=== PATIENT | female | born 1995 | race Two or more races ===

== ENCOUNTER 2025-02-02 05:12 | Emergency (ER) | payer MEDICAID, OTHER ==
[~2025-02-02] VITALS: Ht 160 cm; Wt 71.7 kg
[2025-02-02 05:12] VITALS: TEMP 98.1
--- NOTE | 2025-02-02 06:43 | ED.PDOC ---
GI ASSESSMENT HPI Comments 29 y/o F, with no prior medical history presents to the ED for CC of abdominal pain. 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 Patient relays, to have further associated symptoms of nausea and vomiting. Patient comments, that pain intensifies with inspiration. Patient denies palpitations, numbness or weakness in extremities, dizziness, headache, or diarrhea. No other symptom or modifying factors are present at this time. Chief Complaint: Abdominal Pain Time Seen by MD: 06:15 Reviewed Notes: Nurses Notes, Medications, Allergies Allergies: Coded Allergies: Penicillins (Verified Allergy, Unknown, 02/02/25) Information Source: Patient Mode of Arrival: Ambulatory Timing: Hours Duration: Since onset Prehospital treatment: None Quality: Sharp Vomitus: Watery Stool: Normal Severity: Moderate Recent: None Recent Hx of: None Pain Location: Epigastric Modifying Factors: Nothing Associated sign and symptoms: Nausea, Vomiting, Abdominal Pain Past Medical History PAST MEDICAL HISTORY: Denies Surgical History: Denies all surgeries 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 Family History Family History: Unknown Social History Smoker: Non-Smoker Alcohol: Denies ETOH Use Drugs: Denies Drug Use Lives In: Home Constitutional: denies: chills, diaphoresis, fatigue, fever, malaise, sweats, weakness, others EENTM: denies: blurred vision, double vision, ear bleeding, ear discharge, ear drainage, ear pain, ear ringing, eye pain, eye redness, hearing loss, mouth pain, mouth swelling, nasal discharge, nose bleeding, nose congestion, nose pain, photophobia, tearing, throat pain, throat swelling, voice changes, others Respiratory: denies: cough, hemoptysis, orthopnea, SOB at rest, shortness of breath, SOB with excertion, stridor, wheezing, others Cardiovascular: reports: chest pain; denies: dizzy spells, diaphoresis, Dyspnea on exertion, edema, irregular heart beat, left arm pain, lightheadedness, palpitations, PND, syncope, others Gastrointestinal: reports: abdominal pain, nausea, vomiting; denies: abdomen distended, blood streaked bowels, constipated, diarrhea, dysphagia, difficulty swallowing, hematemesis, melena, poor appetite, poor fluid intake, rectal bleeding, rectal pain, others Genitourinary: denies: abnormal vagina bleeding, burning, dyspareunia, dysuria, flank pain, frequency, hematuria, incontinence, pain, , vagina discharge, urgency, others Neurological: denies: dizziness, fainting, headache, left sided numbness, left sided weakness, numbness, paresthesia, pre-existing deficit, right sided numbness, right sided weakness, seizure, speech problems, tingling, tremors, weakness, others Musculoskeletal: denies: back pain, gout, joint pain, joint swelling, muscle pain, muscle stiffness, neck pain, others Integumetry: denies: bruises, change in color, change in hair/nails, dryness, laceration, lesions, lumps, rash, wounds, others Allergic/Immunocompromised: denies: Difficulty Healing, Frequent Infections, Hives, Itching, others Hematologic/Lymphatic: denies: anemia, blood clots, easy bleeding, easy bruising, swollen glands, others Endocrine: denies: excessive hunger, excessive sweating, excessive thirst, excessive urination, flushing, intolerance to cold, intolerance to heat, unexplained weight gain, unexplained weight loss, others Psychiatric: denies: anxiety, bipolar disorder, depression, hopeless, panic disorder, schizophrenia, sleepless, suicidal, others All Other Systems: Reviewed and Negative Physical Exam General Appearance: Moderate Distress HEENT: Normal ENT Inspection, Pharynx Normal, TMs Normal Neck: Full Range of Motion, Non-Tender, Normal, Normal Inspection Respiratory: Chest Non-Tender, Lungs Clear, No Accessory Muscle Use, No Respiratory Distress, Normal Breath Sounds Cardiovascular: No Edema, No JVD, No Murmur, No Gallop, Normal Peripheral Pulses, Regular Rate/Rhythm Breast Exam: Deferred Gastrointestinal: No Organomegaly, Non Tender, No Pulsatile Mass, Normal Bowel Sounds, Soft Genitalia: Deferred Pelvic: Deferred Rectal: Deferred Extremities: No calf tenderness, Normal capillary refill, Normal inspection, Normal range of motion, Non-tender, No pedal edema Musculoskeletal : Apperance: Normal Neurologic: Alert, 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 Was a procedure done?: No GI differential Dx Differential Diagnosis: Constipation, Diverticular disease, Esophagitis, Gastritis/PUD, Gastroenteritis, Electrolyte Imbalance, Food Poisoning, Bacterial, Viral X-Ray, Labs, Meds, VS Vital Signs Date Time Temp Pulse Resp B/P (MAP) Pulse Ox O2 Delivery O2 Flow Rate FiO2 02/02/25 05:12 98.1 111 18 117/81 97 98.1 Patient alert. Came in because epigastric discomfort. Chest pain shortness a breath. She is anxious. No leg swelling. Saturation pristine on room air. She is comfortable. Heart rate on clinical examination was within normal limits. Possible gastritis. Was given prescription of Protonix. Explained to the patient. Continue monitoring. Time of 1ST Reevaluation: 06:45 Reevaluation 1ST: Improved Patient Education/Counseling: Diagnosis, Treatment Family Education/Counseling: No Family Present SEPSIS Sepsis Screen Date sepsis recognized/suspect: Feb 02, 2025 Time Sepsis recognized/suspect: 511 Recent Procedure: No On Antibiotic Therapy: No Respiratory Rate >20: No Heart Rate >90: Yes Temp<36 C (96.8 F) or >38.3 C: No SBP <90 or MAP <65 mmHG: No New Acute Mental Status Change: No Is the patient on CPAP, BIPAP,: No Physician Orders Complete Blood Count (02/02/25 06:38) Urinalysis (02/02/25 06:38) Basic Metabolic Panel (02/02/25 06:38) Vital Signs Date Time Temp Pulse Resp B/P (MAP) Pulse Ox O2 Delivery O2 Flow Rate FiO2 02/02/25 05:12 98.1 111 18 117/81 97 98.1 Departure 1 Departure Time of Disposition: 07:01 Impression: Primary Impression: Gastritis Qualified Codes: K29.00 - Acute gastritis without bleeding Disposition: 01 HOME / SELF CARE / HOMELESS Condition: Good Discharged With: Self Critical Care Note Critical Care Time?: No Stability Stability form required: No Heart Score Heart Score: Heart Score Response (Comments) Value History N/A 0 EKG N/A 0 Age N/A 0 Risk Factors N/A 0 Troponin N/A 0 Total 0 I personally scribed for JOSE DAVID ANGELA MD ([email or web address]) on 02/02/25 at 06:43. Electronically submitted by Yen Lo [email or web address]). JOSE DAVID ANGELA MD Feb 02, 2025 06:43
[2025-02-02 07:22] LABS: Hematocrit 42.0 % (36.0-46.0); Hemoglobin 14.1 g/dL (12.2-16.2); Mean Corpuscular Hemoglobin 31.6 pg (28.0-32.0); Mean Corpuscular Volume 94.3 fL (80.0-100.0); Nucleated Red Blood Cells % 0.0 %
[2025-02-02 07:34] LABS: Chloride 106 mmol/L (98-107); Sodium 143 mmol/L (136-145)
[2025-02-02 07:35] LABS: Anion Gap 12 (5-15); Calcium 9.1 mg/dL (8.7-10.4); Carbon Dioxide 25 mmol/L (20-31)
[2025-02-02 07:40] LABS: BUN/Creatinine Ratio 13.2 (10.0-20.0); Blood Urea Nitrogen 10 mg/dL (9-23); Glucose 91 mg/dL (74-106); Potassium 3.4 mmol/L (3.5-5.1)
[2025-02-02 07:44] LABS: Urine Protein, UAD Negative (Negative)
[2025-02-02 09:09] VITALS: BP 110/74; PULSE 90; RESP 16; O2SAT 97
== END 2025-02-02 09:14 | disposition home or self-care (01) ==
LOC: ER 05:12
DX: K29.00 Acute gastritis without bleeding (principal); Z88.0 Allergy status to penicillin
CPT/HCPCS: 36415; 80048; 81001; 85025

== ENCOUNTER 2025-03-15 21:28 | Inpatient (IN) | payer MEDICAID ==
[~2025-03-15] VITALS: Ht 160 cm; Wt 70.0 kg
[2025-03-15] MEDS: SODIUM CHLORIDE 0.9% 1,000 ML IV ONE (00:53)
[2025-03-15 22:22] LABS: Hematocrit 42.2 % (36.0-46.0); Hemoglobin 14.2 g/dL (12.2-16.2); Mean Corpuscular Hemoglobin 31.8 pg (28.0-32.0); Mean Corpuscular Volume 94.6 fL (80.0-100.0); Nucleated Red Blood Cells % 0.0 %
[2025-03-15 22:39] LABS: Alanine Aminotransferase 24 U/L (7-40); Alkaline Phosphatase 75 U/L (46-116); Anion Gap 12 (5-15); BUN/Creatinine Ratio 9.7 (10.0-20.0); Calcium 9.7 mg/dL (8.7-10.4); Carbon Dioxide 24 mmol/L (20-31); Chloride 99 mmol/L (98-107); Glucose 105 mg/dL (74-106); Lipase 34 U/L (12-53); Potassium 3.5 mmol/L (3.5-5.1)
[2025-03-15 22:40] LABS: Bilirubin, Total 1.2 mg/dL (0.2-1.0)
--- NOTE | 2025-03-15 22:46 | ED.PDOC ---
History of Present Illness HPI Comments 29 y/o F presents with c/c of lower abdominal pain, with associated nausea and vomiting. Patient endorses on sudden, unprovoked, and atraumatic onset of pain, yesterday. Reports on RLQ being more painful of her two sides. Pain worse with movement. Denial of any bloody or bilious vomitus, diarrhea, constipation, or further associated symptoms. 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 Family History Family History: Unknown Social History Smoker: Non-Smoker Alcohol: Denies ETOH Use Drugs: Denies Drug Use Lives In: Home All Other Systems: Reviewed and Negative (Comprehensive review of systems are negative unless stated in HPI) Physical Exam General Appearance: Moderate Distress, Normal HEENT: Normal ENT Inspection, Pharynx Normal, TMs Normal Neck: Full Range of Motion, Non-Tender, Normal, Normal Inspection Respiratory: Chest Non-Tender, Lungs Clear, No Accessory Muscle Use, No Respiratory Distress, Normal Breath Sounds Cardiovascular: No Edema, No JVD, No Murmur, No Gallop, Normal Peripheral Pulses, Regular Rate/Rhythm Breast Exam: Deferred Gastrointestinal: No Organomegaly, No Pulsatile Mass, Normal Bowel Sounds, RLQ (tenderness ), Soft, Tenderness (RLQ) Genitalia: Deferred Pelvic: Deferred Rectal: Deferred Extremities: No calf tenderness, Normal capillary refill, Normal inspection, Normal range of motion, Non-tender, No pedal edema Musculoskeletal : Apperance: Normal Neurologic: 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 Was a procedure done?: No Differential Dx Considerations may include: appendicitis, nephrolithiasis, UTI, viral syndrome, ovarian cysts/torsion, among others X-Ray, Labs, Meds, VS Vital Signs Date Time Temp Pulse Resp B/P (MAP) Pulse Ox O2 Delivery O2 Flow Rate FiO2 9/28/25 22:47 98.9 149 18 124/80 (95) 97 98.9 03/15/25 21:29 97.6 136 20 143/92 98 97.6 Lab Test 03/15/25 22:15 Range/Units White Blood Count 14.2 H 4.4-10.8 10^3/uL Red Blood Count 4.47 4.0-5.20 10^6/uL Hemoglobin 14.2 12.2-16.2 g/dL Hematocrit 42.2 36.0-46.0 % Mean Corpuscular Volume 94.6 80.0-100.0 fL Mean Corpuscular Hemoglobin 31.8 28.0-32.0 pg Mean Corpuscular Hemoglobin Concent 33.6 32.0-36.0 g/dL Red Cell Distribution Width 16.0 H 11.8-14.3 % Platelet Count 274 140-450 10^3/uL Mean Platelet Volume 7.0 6.9-10.8 fL Neutrophils (%) (Auto) 79.7 37.0-80.0 % Lymphocytes (%) (Auto) 8.5 L 10.0-50.0 % Monocytes (%) (Auto) 11.4 0.0-12.0 % Eosinophils (%) (Auto) 0.0 0.0-7.0 % Basophils (%) (Auto) 0.4 0.0-2.0 % Neutrophils # (Auto) 11.3 H 1.6-8.6 10 ^3/uL Lymphocytes # (Auto) 1.2 0.4-5.4 10 ^3/uL Monocytes # (Auto) 1.6 H 0-1.3 10 ^3/uL Eosinophils # (Auto) 0 0-0.8 10 ^3/uL Basophils # (Auto) 0.1 0-0.2 10 ^3/uL Nucleated Red Blood Cells 0.0 % Sodium Level 135 L 136-145 mmol/L Potassium Level 3.5 3.5-5.1 mmol/L Chloride Level 99 98-107 mmol/L Carbon Dioxide Level 24 20-31 mmol/L Anion Gap 12 5-15 Blood Urea Nitrogen 7 L 9-23 mg/dL Creatinine 0.72 0.550-1.02 mg/dL Glomerular Filtration Rate Calc 115 >90 mL/min BUN/Creatinine Ratio 9.7 L 10.0-20.0 Serum Glucose 105 74-106 mg/dL Calcium Level 9.7 8.7-10.4 mg/dL Total Bilirubin 1.2 H 0.2-1.0 mg/dL Aspartate Amino Transferase (AST) 20 13-40 U/L Alanine Aminotransferase (ALT) 24 7-40 U/L Alkaline Phosphatase 75 46-116 U/L Total Protein 8.5 H 5.7-8.2 g/dL Albumin 5.0 H 3.2-4.8 g/dL Lipase 34 12-53 U/L Time of 1ST Reevaluation: 21:15 Reevaluation 1ST: Unchanged Patient Education/Counseling: Diagnosis, Treatment Family Education/Counseling: No Family Present SEPSIS Sepsis Screen Date sepsis recognized/suspect: Mar 15, 2025 Time Sepsis recognized/suspect: 2128 Recent Procedure: No On Antibiotic Therapy: No Respiratory Rate >20: No Heart Rate >90: Yes Temp<36 C (96.8 F) or >38.3 C: No SBP <90 or MAP <65 mmHG: No New Acute Mental Status Change: No Is the patient on CPAP, BIPAP,: No Physician Orders Urinalysis (03/15/25 21:57) Test, Urine (03/15/25 21:57) Ct Ab Pel With Iv Con Only (03/15/25 22:58) Vital Signs Date Time Temp Pulse Resp B/P (MAP) Pulse Ox O2 Delivery O2 Flow Rate FiO2 03/15/25 22:47 98.9 149 18 124/80 (95) 97 98.9 03/15/25 21:29 97.6 136 20 143/92 98 97.6 Laboratory Tests Test 03/15/25 22:15 White Blood Count 14.2 10^3/uL (4.4-10.8) H Departure 1 Departure Time of Disposition: 00:02 Impression: Primary Impression: Acute appendicitis Disposition: ADMITTED INPATIENT Admit to: Med Surg Condition: Guarded Discharged With: Self Comments 29-year-old female with severe right lower quadrant pain. White count is elevated 14.2. CT of the abdomen and pelvis shows acute appendicitis. Patient was given IV fluids and pain medicine and IV Zosyn antibiotics. Patient will need to be admitted for supportive care and surgical consultation and possible appendectomy. Critical Care Note Critical Care Time?: Yes (35 min-critical care time only) Critical care comment: Total critical care time: Approximately 36 minutes Due to a high probability of clinically significant, life threatening deterioration, the patient required my highest level of preparedness to intervene emergently and I personally spent this critical care time directly and personally managing the patient. This critical care time included obtaining a history; examining the patient; pulse oximetry; ordering and review of studies; arranging urgent treatment with development of a management plan; evaluation of patient's response to treatment; frequent reassessment; and, discussions with other providers. This critical care time was performed to assess and manage the high probability of imminent, life-threatening deterioration that could result in multi-organ failure. It was exclusive of separately billable procedures and treating other patients. Stability Stability form required: No Heart Score Heart Score: Heart Score Response (Comments) Value History N/A 0 EKG N/A 0 Age N/A 0 Risk Factors N/A 0 Troponin N/A 0 Total 0 I personally scribed for SILVA FISHER MD ([email or web address]) on 03/15/25 at 22:46. Electronically submitted by Jassi Kennedy ([email or web address]). SILVA FISHER MD Mar 15, 2025 22:46
[2025-03-15 22:58] LABS: Albumin 5.0 g/dL (3.2-4.8); Blood Urea Nitrogen 7 mg/dL (9-23); Sodium 135 mmol/L (136-145); Total Protein 8.5 g/dL (5.7-8.2)
[2025-03-15] MEDS: IOHEXOL 300 MG/ML 100ML BOTTLE IJ ONE (23:09)
--- NOTE | 2025-03-15 23:49 | DVH ---
CLINICAL HISTORY: RLQ pain TECHNIQUE: CT of the abdomen and pelvis was performed with intravenous contrast. This exam was perfor med according to our departmental dose optimization program. Up-to-date CT equipment and radiation do se reduction techniques are utilized as appropriate. 16.68 CTDIVol: 16.68+ 0.14 mGy DLP: 785.17 mGy-cm WID: COMPARISON: None FINDINGS: Lower Thorax: Calcified granuloma in the left lower lobe. Lung bases otherwise clear. Normal-sized h eart. Liver and Biliary system: Unremarkable. Spleen: Unremarkable. Adrenal Glands and Kidneys: Normal adrenal glands. There is a cyst in the lower pole left kidney. The re is no hydronephrosis or nephrolithiasis. Pancreas and Retroperitoneum: Unremarkable. Aorta and Major Vessels: Aortoiliac vessels are patent and normal caliber Bowel, Mesentery and Peritoneal space: Normal caliber small and large bowel. There is mild ascites. There is a dilated and elongated appendix with periappendiceal soft tissue stranding. Scattered fluid -filled small bowel loops. There is no free intraperitoneal air or loculated fluid collection. Pelvis: Small cyst or prominent follicle in the left ovary. The uterus and ovaries are otherwise unr emarkable. Urinary bladder is mildly distended. There is no pelvic lymphadenopathy. Abdominal wall and Osseous Structures: No destructive osseous lesion. IMPRESSION: 1. Acute appendicitis. No free air or abscess.
[2025-03-16] VITALS (7 sets, daily range): BP systolic 102–115; BP diastolic 72–80; PULSE 71–89; RESP 12–18; TEMP 98.2–98.5; O2SAT 96–100
[2025-03-16] MEDS ORDERED: SODIUM CHLORIDE 0.9% 1,000 ML IV SCH (00:15)
--- NOTE | 2025-03-16 00:19 | DVHHPRES ---
History of Present Illness Resident Creating Document: JUNE ALVAREZ History of Present Illness Alex Frye is a 29year old female patient who presents to the ED with chief complaint of constant pressure-like abdominal pain which 1st started and umbilical area and then radiated towards right lower quadrant, pain started on Sunday on 03/14/2025 at noon with intensity 10/10, associated with nausea, vomiting with food containing than yellowish and clear emesis and constipation. Pain did not improve with Pepto-Bismol and was partially relieved by heating pads. Patient was not able to since onset of symptoms, prompting her visit today. Denies fever, chills, sick contact, recent travel and other associated symptom. 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 Surgical history: Ectopic surgery, left foot surgery Family history: Grandmother has heart disease Social history: Lives in [place] with roommates (next of kin is mother). Occasionally smokes (less than five pack-year history of smoking). Occasional cocaine abuse. Ethanol abuse (drinks two pt of hodan in three beers a day) last alcoholic beverage was on Sunday03/10/2025 Allergies: Penicillin Home medication: Albuterol Patient seen and examined at bedside. Currently presents abdominal pain, intens ity is now 6/10, improved after IV fluids and IV antibiotics. Completed abdomen and pelvis CT in ER which showed appendicitis, suggested admission to continued evaluation and consulted surgery. Past Medical History Per HPI Past Surgical History Per HPI Family History Per HPI Past Social History Per HPI Review of Systems Review of Systems Per HPI Allergies: Coded Allergies: Penicillins (Verified Allergy, Unknown, 02/02/25) Medications Current Medications Medications Dose Ordered Sig/Pelon Route Start Time Stop Time Status Last Admin Dose Admin Ondansetron HCl 4 mg Q4HP PRN IV 03/16/25 00:15 UNV Morphine Sulfate 2 mg Q4HPRN PRN IV 03/16/25 00:15 UNV Enoxaparin Sodium 40 mg DAILY SC 03/16/25 10:00 UNV Sodium Chloride 1,000 ml @ 60 mls/hr [id number] IV 03/16/25 00:15 UNV Exam Vital Signs Vital Signs Date Time Temp Pulse Resp B/P (MAP) Pulse Ox O2 Delivery O2 Flow Rate FiO2 03/15/25 22:47 98.9 149 18 124/80 (95) 97 98.9 Exam Patient lying in bed, in no acute distress General: Lucid, afebrile, mucosae are moist Cardiovascular: Normal S1 and S2. No murmurs, gallops or rubs Respiratory: Normal ventilation mechanics. Clear lung sounds on auscultation Abdomen: Soft, right upper and lower quadrant tenderness on superficial palpation, positive McBurney and Reena sign, rest of abdomen nontender, no organomegaly, normal bowel sounds MSK/skin: Mobilizes 4 limbs. Skin is dry and warm Neurological: Oriented in 3 spheres. No motor no sensitive deficits. Pupils are isocoric and reactive Labs/Xrays Labs Test 03/15/25 22:15 Range/Units White Blood Count 14.2 H 4.4-10.8 10^3/uL Red Blood Count 4.47 4.0-5.20 10^6/uL Hemoglobin 14.2 12.2-16.2 g/dL Hematocrit 42.2 36.0-46.0 % Mean Corpuscular Volume 94.6 80.0-100.0 fL Mean Corpuscular Hemoglobin 31.8 28.0-32.0 pg Mean Corpuscular Hemoglobin Concent 33.6 32.0-36.0 g/dL Red Cell Distribution Width 16.0 H 11.8-14.3 % Platelet Count 274 140-450 10^3/uL Mean Platelet Volume 7.0 6.9-10.8 fL Neutrophils (%) (Auto) 79.7 37.0-80.0 % Lymphocytes (%) (Auto) 8.5 L 10.0-50.0 % Monocytes (%) (Auto) 11.4 0.0-12.0 % Eosinophils (%) (Auto) 0.0 0.0-7.0 % Basophils (%) (Auto) 0.4 0.0-2.0 % Neutrophils # (Auto) 11.3 H 1.6-8.6 10 ^3/uL Lymphocytes # (Auto) 1.2 0.4-5.4 10 ^3/uL Monocytes # (Auto) 1.6 H 0-1.3 10 ^3/uL Eosinophils # (Auto) 0 0-0.8 10 ^3/uL Basophils # (Auto) 0.1 0-0.2 10 ^3/uL Nucleated Red Blood Cells 0.0 % Sodium Level 135 L 136-145 mmol/L Potassium Level 3.5 3.5-5.1 mmol/L Chloride Level 99 98-107 mmol/L Carbon Dioxide Level 24 20-31 mmol/L Anion Gap 12 5-15 Blood Urea Nitrogen 7 L 9-23 mg/dL Creatinine 0.72 0.550-1.02 mg/dL Glomerular Filtration Rate Calc 115 >90 mL/min BUN/Creatinine Ratio 9.7 L 10.0-20.0 Serum Glucose 105 74-106 mg/dL Calcium Level 9.7 8.7-10.4 mg/dL Total Bilirubin 1.2 H 0.2-1.0 mg/dL Aspartate Amino Transferase (AST) 20 13-40 U/L Alanine Aminotransferase (ALT) 24 7-40 U/L Alkaline Phosphatase 75 46-116 U/L Total Protein 8.5 H 5.7-8.2 g/dL Albumin 5.0 H 3.2-4.8 g/dL Lipase 34 12-53 U/L SEPSIS Sepsis Screen Date sepsis recognized/suspect: Mar 15, 2025 Time Sepsis recognized/suspect: 2128 Recent Procedure: No On Antibiotic Therapy: No Respiratory Rate >20: No Heart Rate >90: Yes Temp<36 C (96.8 F) or >38.3 C: No SBP <90 or MAP <65 mmHG: No New Acute Mental Status Change: No Is the patient on CPAP, BIPAP,: No Physician Orders Urinalysis (03/15/25 21:57) Test, Urine (03/15/25 21:57) Ct Ab Pel With Iv Con Only (03/15/25 22:58) Piperacillin-Tazob 3.375gm (Zosyn 3.375g (03/16/25 00:15) * Surgical Consult (03/16/25 ) Code Status (03/16/25 00:12) Ondansetron Hcl (Zofran) (03/16/25 00:15) Npo (Nothing By Mouth) Diet (03/16/25 Breakfast) Morphine Sulfate Injection (03/16/25 00:15) Enoxaparin Sodium (Lovenox) (03/16/25 10:00) Sodium Chloride 0.9% (03/16/25 00:15) Sodium Chloride 0.9% (03/16/25 00:15) Vitamin D, 25-Hydroxy (03/16/25 00:16) Urinalysis (03/16/25 00:16) Vitamin B12 (03/16/25 00:16) Thyroid Stimulating Hormone (03/16/25 00:16) Phosphorus (03/16/25 00:16) PTPTT (03/16/25 00:16) Magnesium (03/16/25 00:16) Lipid Panel (03/16/25 00:16) Lactic Acid W/ Reflex Order (03/16/25 00:16) Hemoglobin A1c (03/16/25 00:16) Drug Screen (03/16/25 00:16) Beta Hcg, Quantitative (03/16/25 00:16) Vital Signs Date Time Temp Pulse Resp B/P (MAP) Pulse Ox O2 Delivery O2 Flow Rate FiO2 03/15/25 22:47 98.9 149 18 124/80 (95) 97 98.9 03/15/25 21:29 97.6 136 20 143/92 98 97.6 Laboratory Tests Test 03/15/25 22:15 White Blood Count 14.2 10^3/uL (4.4-10.8) H Assessment/Plan Assessment/Plan Sepsis secondary to appendicitis Acute appendicitis Completed abdomen and pelvis CT which showed acute appendicitis. Currently under empiric IV antibiotic (Zosyn) Indicate bowel rest (NPO) On IV fluids Consulted educational technology specialist Ethanol abuse Hyperbilirubinemia Polysubstance abuse (ethanol, cocaine, tobacco) Patient drinks a proximally two pt of hodan and three beers a day, her last alcoholic beverage was on 03/10/2025. Ativan p.r.n. for withdrawal syndrome (CIWA score 0) Counseled patient for over 16 minutes on cessation Hypophosphatemia Replenish Multiple ectopic pregnancies and abortions Ordered STI panel Asthma, no exacerbation Albuterol p.r.n. Goals of care discussed with patient for over18 minutes: Full code status Discussed plan with Dr. Soler, patient and nurses: [facility], currently on NPO, IV antibiotics, IV fluids. Ordered surgical evaluation. Plan discussed with: Patient, Other (Nurses) My Orders Orders - JUNE ALVAREZ Procedure Category Date Status Time * Surgical Consult CONS 03/16/25 Transmitted Code Status CODE 03/16/25 Transmitted 00:12 Ondansetron Hcl PHA 03/16/25 Logged (Zofran) 00:15 Npo (Nothing By DIET 03/16/25 Transmitted Mouth) Diet Breakfast Morphine Sulfate PHA 03/16/25 Logged Injection 00:15 Enoxaparin Sodium PHA 03/16/25 Logged (Lovenox) 10:00 Sodium Chloride 0.9% PHA 03/16/25 Logged 00:15 Sodium Chloride 0.9% PHA 03/16/25 Logged 00:15 Vitamin D, 25-Hydroxy LAB 03/16/25 Verified 00:16 Urinalysis LAB 03/16/25 Verified 00:16 Vitamin B12 LAB 03/16/25 Verified 00:16 Thyroid Stimulating LAB 03/16/25 Verified Hormone 00:16 Phosphorus LAB 03/16/25 Verified 00:16 PTPTT LAB 03/16/25 Verified 00:16 Magnesium LAB 03/16/25 Verified 00:16 Lipid Panel LAB 03/16/25 Verified 00:16 Lactic Acid W/ Reflex LAB 03/16/25 Verified Order 00:16 Hemoglobin A1c LAB 03/16/25 Verified 00:16 Drug Screen LAB 03/16/25 Verified 00:16 Beta Hcg, Quantitative LAB 03/16/25 Verified 00:16 Date of Service: Mar 16, 2025 Billing Provider: KRISTEL BRYANT MD Common Visit Codes: 93790-EIHUATK INP/OBS CARE (HIGH) Secondary Visit Codes: 62710-[id number] CARE PLAN 30 MINUTES JUNE ALVAREZ RESIDENT Mar 16, 2025 00:19
[2025-03-16 00:51] LABS: INR 1.07 (0.9-1.15); Partial Thromboplastin Time 29.0 SEC (24.5-34.5); Prothrombin Time 11.3 sec (9.3-11.8)
[2025-03-16] MEDS: ONDANSETRON HCL 4 MG/2 ML VIAL IV ONE (00:54)
[2025-03-16] MEDS: MORPHINE SULFATE 4 MG/ML SYR/VIAL IV ONE (00:55)
[2025-03-16 01:44] LABS: Triglycerides 63.0 mg/dL (< 150)
[2025-03-16 01:45] LABS: Magnesium 1.7 mg/dL (1.6-2.6)
[2025-03-16 01:46] LABS: Cholesterol 136.0 mg/dL (< 200)
[2025-03-16 01:48] LABS: HDL Cholesterol 73.0 mg/dL (40-59)
[2025-03-16 02:10] LABS: Urine Protein, UAD TRACE (Negative)
[2025-03-16] MEDS: SODIUM CHLORIDE 0.9% 1,000 ML IV ONE (02:10)
[2025-03-16 02:23] LABS: Amphetamine Screen, Urine Neg (NEGATIVE); Barbiturate Scree,Urine Neg (NEGATIVE); Benzodiazephine Screen, Urine Neg (NEGATIVE); Cannabinoid Screen, Urine Neg (NEGATIVE); Cocaine Screen, Urine Neg (NEGATIVE); Opiate Scree,Urine Neg (NEGATIVE); Phencyclidine Screen, Urine Neg (NEGATIVE)
[2025-03-16] MEDS ORDERED: LORazepam 2MG/ML-1ML VIAL IV PRN (03:15)
[2025-03-16 04:45] LABS: Hematocrit 38.3 % (36.0-46.0); Hemoglobin 12.9 g/dL (12.2-16.2); Mean Corpuscular Hemoglobin 32.1 pg (28.0-32.0); Mean Corpuscular Volume 95.2 fL (80.0-100.0); Nucleated Red Blood Cells % 0.0 %
[2025-03-16 04:55] LABS: Alanine Aminotransferase 18 U/L (7-40); Albumin 4.5 g/dL (3.2-4.8); Alkaline Phosphatase 68 U/L (46-116); Anion Gap 10 (5-15); Bilirubin, Total 1.1 mg/dL (0.2-1.0); Carbon Dioxide 24 mmol/L (20-31); Chloride 101 mmol/L (98-107); Glucose 88 mg/dL (74-106); Total Protein 7.7 g/dL (5.7-8.2)
[2025-03-16 04:56] LABS: BUN/Creatinine Ratio 7.7 (10.0-20.0); Blood Urea Nitrogen < 5 mg/dL (9-23); Calcium 8.3 mg/dL (8.7-10.4); Potassium 3.3 mmol/L (3.5-5.1); Sodium 135 mmol/L (136-145)
[2025-03-16] MEDS: PANTOPRAZOLE 40 MG/10 ML VIAL INJ IV ONE (04:56)
[2025-03-16] MEDS: MORPHINE SULFATE INJ 2 MG/ml SYRG IV PRN (04:57)
[2025-03-16] MEDS: ONDANSETRON HCL 4 MG/2 ML VIAL IV PRN (04:58)
[2025-03-16] MEDS: MORPHINE SULFATE 4 MG/ML SYR/VIAL ONE (04:58)
[2025-03-16] MEDS: PIPERACILLIN-TAZOB 3.375GM 100 ML IV ONE ×2 (09:32→12:34)
[2025-03-16] MEDS ORDERED: MORPHINE SULFATE 4 MG/ML SYR/VIAL IV PRN (10:15)
[2025-03-16] MEDS: KETOROLAC TROMETH 30 MG/ML 1ML VIAL IV ONE (10:15)
[2025-03-16] MEDS ORDERED: METOCLOPRAMIDE HCL 5MG/ml INJ 2ml VIAL IV PRN (10:15)
[2025-03-16] MEDS ORDERED: HYDROmorphone HCL 2 MG/ML VL/or syr IV PRN (10:15)
[2025-03-16] MEDS ORDERED: ONDANSETRON HCL 4 MG/2 ML VIAL ONE (10:21)
[2025-03-16] MEDS ORDERED: ROCURONIUM 10MG/ML 10ML VIAL IV ONE (10:21)
[2025-03-16] MEDS ORDERED: LIDOCAINE HCL 2% TOP JELLY 5ML TOP ONE (10:21)
[2025-03-16] MEDS ORDERED: NEOSTIGMINE 1 MG/ML INJ (10mg/10ML VIAL) ONE (10:21)
[2025-03-16] MEDS ORDERED: LIDOCAINE 1% INJ PF 5ML AMP ONE (10:21)
[2025-03-16] MEDS ORDERED: MIDAZOLAM HCL 2MG/2ML 2ml VIAL (1mg/ml) ONE (10:21)
[2025-03-16] MEDS ORDERED: KETAMINE 50mg/ML 10ml Vial 10 ML ONE (10:21)
[2025-03-16] MEDS ORDERED: GLYCOPYRROLATE 0.2 MG/ML 1ML VIAL ONE (10:21)
[2025-03-16] MEDS ORDERED: HYDROmorphone HCL 2 MG/ML VL/or syr ONE (10:21)
[2025-03-16] MEDS ORDERED: SODIUM CHLORIDE LOCK 10 ML ONE (10:21)
[2025-03-16] MEDS ORDERED: fentaNYL CITRATE 100 MCG/2 ML VL ONE (10:21)
[2025-03-16] MEDS ORDERED: PROPOFOL 10 MG/ML 20 ML IV ONE (10:21)
--- NOTE | 2025-03-16 10:22 | DVHINCON2 ---
Date of service: Mar 16, 2025 History of Present Illness 29-year-old female with a history of alcohol abuse complaining of one day history of periumbilical and right lower quadrant abdominal pain last night. Past Medical History Asthma Past Surgical History Two laparoscopic surgeries for ectopic . Left ankle surgery. Family History Noncontributory Social History Drinks every day. Denies tobacco or IV drug use Allergies: Coded Allergies: NO KNOWN ALLERGIES (Unverified , 03/16/25) Home Meds No Active Prescriptions or Reported Meds Current Medications Current Medications Medications (Trade) Dose Ordered Sig/Pelon Route PRN Reason Start Time Stop Time Status Last Admin Ondansetron HCl (Zofran) 4 mg Q4HP PRN IV NAUSEA / VOMITING 03/16/25 00:15 03/16/25 04:58 Morphine Sulfate 2 mg Q4HPRN PRN IV SEVERE PAIN (7-10 PAIN SCALE) 03/16/25 00:15 03/16/25 04:57 Enoxaparin Sodium (Lovenox) 40 mg DAILY SC 03/16/25 10:00 Sodium Chloride 1,000 ml @ 60 mls/hr [id number] IV 03/16/25 00:15 Piperacillin Sod/ Tazobactam Sod 100 ml @ 25 mls/hr Q8HR IV 03/16/25 14:00 Pantoprazole Sodium (Protonix) 40 mg DAILY IV 03/16/25 10:00 Lorazepam (Ativan Inj) 0.5 mg Q6HP PRN IV ANXIETY 03/16/25 03:15 Metoclopramide HCl (Reglan Injection) 10 mg ONCE PRN IV NAUSEA / VOMITING 03/16/25 10:15 03/16/25 10:16 UNV Hydromorphone HCl (Dilaudid Injection) 0.5 mg Q10M PRN IV SEVERE PAIN (7-10 PAIN SCALE) 03/16/25 10:15 03/16/25 10:56 UNV Morphine Sulfate 2 mg Q4H PRN IV BREAKTHRU PAIN SCALE 7-10 03/16/25 10:15 03/16/25 14:16 UNV Hydromorphone HCl (Dilaudid Injection) 0.25 mg Q10M PRN IV MODERATE PAIN (4-6 PAIN SCALE) 03/16/25 10:15 03/16/25 10:46 UNV Morphine Sulfate 1 mg Q30M PRN IV SEVERE PAIN (7-10 PAIN SCALE) 03/16/25 10:15 03/16/25 12:16 UNV Vital Signs Vital Signs Date Time Temp Pulse Resp B/P (MAP) Pulse Ox O2 Delivery O2 Flow Rate FiO2 03/16/25 07:39 98.5 89 16 115/80 (92) 98 98.5 03/16/25 01:22 Room Air* 0 21 Physical Exam GEN: Age-appropriate female in no acute distress. Alert. HEENT: Normocephalic atraumatic. Moist mucous membranes. Anicteric sclerae. CV: RRR Respiratory: CTAB ABD: Diffuse tenderness to palpation especially in the right lower quadrant with localized guarding. CT of the abdomen and pelvis: Acute appendicitis Labs/Diagnostic Data Labs Test 03/16/25 04:17 03/16/25 01:50 03/16/25 00:31 03/15/25 22:15 Range/Units White Blood Count 9.8 # 4.4-10.8 10^3/uL Red Blood Count 4.03 4.0-5.20 10^6/uL Hemoglobin 12.9 12.2-16.2 g/dL Hematocrit 38.3 36.0-46.0 % Mean Corpuscular Volume 95.2 80.0-100.0 fL Mean Corpuscular Hemoglobin 32.1 H 28.0-32.0 pg Mean Corpuscular Hemoglobin Concent 33.7 32.0-36.0 g/dL Red Cell Distribution Width 16.0 H 11.8-14.3 % Platelet Count 229 140-450 10^3/uL Mean Platelet Volume 7.5 6.9-10.8 fL Neutrophils (%) (Auto) 71.3 37.0-80.0 % Lymphocytes (%) (Auto) 18.7 10.0-50.0 % Monocytes (%) (Auto) 9.8 0.0-12.0 % Eosinophils (%) (Auto) 0.1 0.0-7.0 % Basophils (%) (Auto) 0.1 0.0-2.0 % Neutrophils # (Auto) 7.0 1.6-8.6 10 ^3/uL Lymphocytes # (Auto) 1.8 0.4-5.4 10 ^3/uL Monocytes # (Auto) 1.0 0-1.3 10 ^3/uL Eosinophils # (Auto) 0 0-0.8 10 ^3/uL Basophils # (Auto) 0 0-0.2 10 ^3/uL Nucleated Red Blood Cells 0.0 % Sodium Level 135 L 136-145 mmol/L Potassium Level 3.3 L 3.5-5.1 mmol/L Chloride Level 101 98-107 mmol/L Carbon Dioxide Level 24 20-31 mmol/L Anion Gap 10 5-15 Blood Urea Nitrogen < 5 L 9-23 mg/dL Creatinine 0.65 0.550-1.02 mg/dL Glomerular Filtration Rate Calc 121 >90 mL/min BUN/Creatinine Ratio 7.7 L 10.0-20.0 Serum Glucose 88 74-106 mg/dL Calcium Level 8.3 L 8.7-10.4 mg/dL Total Bilirubin 1.1 H 0.2-1.0 mg/dL Aspartate Amino Transferase (AST) 15 13-40 U/L Alanine Aminotransferase (ALT) 18 7-40 U/L Alkaline Phosphatase 68 46-116 U/L Total Protein 7.7 5.7-8.2 g/dL Albumin 4.5 3.2-4.8 g/dL Plasma/Serum Blood Alcohol < 3.0 <10 mg/dL Treponema pallidum Antibody Non-reactive Negative HIV (1&2) Antibody Negative Negative Urine Color Light-yellow Yellow Urine Clarity Clear Clear Urine pH 7.0 5.0-9.0 Urine Specific [place] > 1.050 H 1.001-1.035 Urine Protein Trace H Negative Urine Ketones 1+ H Negative Urine Blood Negative Negative /uL Urine Nitrite Negative Negative Urine Bilirubin Negative Negative Urine Urobilinogen Normal Negative mg/dL Urine Leukocyte Esterase Negative Negative /uL Urine RBC None seen 0 - 4 /hpf Urine Microscopic WBC 1 0-5 /HPF Urine Squamous Epithelial Cells Few <5 /hpf Urine Bacteria None seen None Seen /hpf Urine Glucose Normal Normal mg/dL Urine Test Negative Negative Urine Opiates Screen Neg NEGATIVE Urine Fentanyl Screen Neg NEGATIVE Urine Barbiturates Screen Neg NEGATIVE Urine Phencyclidine Screen Neg NEGATIVE Urine Amphetamines Screen Neg NEGATIVE Urine Benzodiazepines Screen Neg NEGATIVE Urine Cocaine Screen Neg NEGATIVE Urine Cannabinoids Screen Neg NEGATIVE Lactic Acid Level 1.1 0.4-2.0 mmol/L Phosphorus Level 2.3 L 2.4-5.1 mg/dL Magnesium Level 1.7 1.6-2.6 mg/dL Triglycerides Level 63 < 150 mg/dL Cholesterol Level 136 < 200 mg/dL LDL Cholesterol 52 < 100 mg/dL HDL Cholesterol 73 H 40-59 mg/dL Prothrombin Time 11.3 9.3-11.8 sec Prothrombin Time INR 1.07 0.9-1.15 Activated Partial Thromboplast Time 29.0 24.5-34.5 SEC Hemoglobin A1c 4.9 <5.7 % A1C Lipase 34 12-53 U/L Vitamin D 25-Hydroxy 9.6 L 30.0-100 ng/mL Thyroid Stimulating Hormone (TSH) 1.19 0.55-4.78 uIU/mL Beta HCG, Quantitative 0.2 L 1.5-4.2 mIU/mL Assessment 1. Acute appendicitis Plan/Recommendation 1. Laparoscopic appendectomy possible open surgery Informed consent: The surgery and its risks including but not limited to infection, bleeding requiring possible blood transfusion with the risk of hepatitis or HIV infection, possible open surgery, possibility that the ab dominal pain is caused by different intra-abdominal pathology other than acute appendicitis in which case we will proceed with the appendectomy if it is safe to do so and then treat the problem according to intraoperative findings were explained to the patient. All questions were answered to her satisfaction. She expressed verbal understanding and wished to proceed with the surgery. Plan discussed with: Patient MARIA LUISA MONTESINOS MD Mar 16, 2025 10:22
[2025-03-16 10:28] LABS: Hepatitis B Surface Antigen Negative (Negative); Hepatitis C Antibody Negative (Negative)
[2025-03-16] MEDS: ENOXAPARIN SOD 40 MG/0.4 ML SYRINGE SC SCH (10:55)
[2025-03-16] MEDS: POTASSIUM CHLORIDE 40 MEQ, LIDOCAINE 1% (LOCAL ANESTH.) 4 ML in SODIUM CHL 0.9% 250 ML IV ONE (10:56)
[2025-03-16] MEDS: PANTOPRAZOLE 40 MG/10 ML VIAL INJ IV SCH (10:56)
[2025-03-16] MEDS ORDERED: MORPHINE SULFATE INJ 2 MG/ml SYRG IV PRN (11:30)
[2025-03-16] MEDS ORDERED: SUGAMMADEX 200mg/2ml Vial (100MG/ML) IV ONE (11:44)
--- NOTE | 2025-03-16 11:50 | DVHOP2 ---
Operative Report - 2 Report Details Date: 03/16/25 Preop Diagnosis: 1. Acute appendicitis Postop Diagnosis: 1. Same Surgeon: Filipe Montesinos MD Imaging Manager: None Anesthesiologist: Dr. Corral Anesthesia: General, Local Consent: The surgery and its risks including but not limited to infection, bleeding requiring possible blood transfusion with the risk of hepatitis or HIV infection, possible open surgery, possibility that the abdominal pain is caused by different intra-abdominal pathology other than acute appendicitis in which case we will proceed with the appendectomy if it is safe to do so and then treat the problem according to intraoperative findings were explained to the patient. All questions were answered to her satisfaction. She expressed verbal understanding and wished to proceed with the surgery. Complications: None Estimated Blood Loss: 20 mL Fluids: 600 mL Name of Procedure Performed Laparoscopic appendectomy Procedure Details Procedure Details: After induction of general anesthesia, Frost catheter was placed by the OR nursing staff and her abdomen was then prepped and draped in standard surgical fashion. A small infraumbilical incision was made and this incision was taken through the abdominal wall down to the fascia. There was appeared to be a small umbilical hernia with small amount of incarcerated fatty tissue which was amputated at the level of the fascial defect. The fascial defect was then lengthened big enough to fit a Matilde trocar. Interrupted 0 Vicryl sutures were placed through the fascial incision and using an open technique, Matilde trocar was introduced and secured using the Vicryl sutures. Abdomen was then insufflated to 15 mmHg and camera was inserted. Visual examination of the intestine under the fascial incision appeared normal without injury. Under direct visualization, a 5 mm bladeless trocar was placed in the left lower quadrant and a 2nd 5 mm bladeless trocar was placed in the suprapubic region both under direct visualization. Examination of the right lower quadrant revealed inflamed and dilated appendix without perforation. Mesoappendix was then divided up to the base of the appendix using an endovascular stapler. Base of the appendix was then stapled and divided using a regular endo stapler. The appendix was then removed from the abdominal cavity using an endo pouch bag and sent off the surgical field. Abdomen was then re-insufflated. The staple line was visualized and appeared intact without bleeding or leaks. There was cloudy fluid down in the pelvis which was aspirated away and the pelvic area was then well irrigated until fluid was clear. Trocars were then removed under direct visualization as the abdomen was deflated. Additional interrupted 0 Vicryl sutures were placed through the infraumbilical fascial incision and the sutures were tied down closing off the infraumbilical fascia. Surgical sites were irrigated injected with 20 mL of 0.25% Marcaine with epinephrine. Skin incisions were closed using minor. Surgical sites were cleaned and dried and dressings were applied. Sponge, needle, instrument count at the end of the case were reported to be correct by the nursing staff. The patient tolerated procedure well and was awake, extubated and at the time of dictation she is being transferred back to recovery in stable condition. Specimen: Appendix Condition Stable Disposition Still a Patient FILIPE MONTESINOS MD Mar 16, 2025 11:50
[2025-03-16] MEDS: HYDROmorphone HCL 2 MG/ML VL/or syr IV PRN (12:14)
--- NOTE | 2025-03-16 12:29 | DVHPNRES ---
Progress Note Date Seen: Mar 16, 2025 Resident Creating Document: VINOD SINGER RESIDENT Medical Necessity Reason Pt with a Central, PICC or Fol: No Subjective Review of Systems Alex Frye is a 29year old female patient who presents to the ED with chief complaint of constant pressure-like abdominal pain which 1st started and umbilical area and then radiated towards right lower quadrant, pain started on Sunday on 03/14/2025 at noon with intensity 10/10, associated with nausea, vomiting with food containing than yellowish and clear emesis and constipation. Pain did not improve with Pepto-Bismol and was partially relieved by heating pads. Patient was not able to since onset of symptoms, prompting her visit today. Denies fever, chills, sick contact, recent travel and other associated symptom. 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 Surgical history: Ectopic surgery, left foot surgery Family history: Grandmother has heart disease Social history: Lives in [place] with roommates (next of kin is mother). Occasionally smokes (less than five pack-year history of smoking). Occasional cocaine abuse. Ethanol abuse (drinks two pt of hodan and three beers a day) last alcoholic beverage was on Sunday03/10/2025 Allergies: none Home medication: Albuterol Full code ROS: 03/16/25: patient was seen and examined by me at the bedside. Patient had abdominal pain which had increased to 8/ 10 in intensity in the morning. Surgery consultation was done and patient underwent laparoscopic appendectomy today. Patient will be on a full liquid diet added Objective vital signs Vital Sign Date Time Temp Pulse Resp B/P (MAP) Pulse Ox O2 Delivery O2 Flow Rate FiO2 03/16/25 12:14 84 16 106/66 03/16/25 07:39 98.5 98 98.5 03/16/25 01:22 Room Air* 0 21 Total Intake and Output 03/15/25 03/15/25 03/16/25 15:00 23:00 07:00 Intake Total 1000 ml Balance 1000 ml medications Current Medications Medications Dose Ordered Sig/Pelon Route Start Time Stop Time Status Last Admin Dose Admin Ondansetron HCl 4 mg Q4HP PRN IV 03/16/25 00:15 03/16/25 04:58 4 MG Morphine Sulfate 2 mg Q4HPRN PRN IV 03/16/25 00:15 03/16/25 04:57 2 MG Piperacillin Sod/ Tazobactam Sod 100 ml @ 25 mls/hr Q8HR IV 03/16/25 14:00 Pantoprazole Sodium 40 mg DAILY IV 03/16/25 10:00 Lorazepam 0.5 mg Q6HP PRN IV 03/16/25 03:15 Morphine Sulfate 2 mg Q4H PRN IV 03/16/25 10:15 03/16/25 14:16 Morphine Sulfate 1 mg Q30M PRN IV 03/16/25 11:30 03/16/25 13:31 Sodium Chloride 1,000 ml @ 75 mls/hr [id number] IV 03/16/25 12:00 Examination Pt is lying on bed General Appearance: Alert, Oriented X3, Cooperative, Not in acute distress HEENT: Atraumatic, Mucous membranes moist/pink Respiratory: Clear to auscultation, Normal air movement, No added sounds Cardiovascular: Regular rate, Normal S1, Normal S2, No murmurs Abdominal: Soft, right upper and lower quadrant tenderness on superficial palpation, positive McBurney and Reena sign, rest of abdomen nontender, no organomegaly, normal bowel sounds Extremities: No edema, Normal pulses, No tenderness/swelling Skin: No Significant rash, except past surgical scars Neuro: Normal speech, sensorimotor deficits none Psych/Mental Status: Mental status NL, Mood NL Nurse was there as operating room surgical technician during examination laboratory and microbiology Laboratory Tests 03/16/25 04:17 Test 03/16/25 04:17 Range/Units Serum Glucose 88 74-106 mg/dL Labs and/or images reviewed: Labs reviewed by me, Image(s) reviewed by me Problem List/Assessment/Plan Problem List/Assessment/Plan #Sepsis secondary to appendicitis #Acute appendicitis -Abdomen and pelvis CT showed acute appendicitis. -Currently under empiric IV antibiotic (Zosyn) -Indicate bowel rest (NPO) -On IV fluids -IV Zofran 4 mg q.4 PRN -Consulted surgery, suggested Laparoscopic appendectomy possible open surgery, Pt underwent laproscopic appendectomy -Protonix IV 40 mg daily -acetaminophen 625 mg per orally 8 hourly #Ethanol abuse #Hyperbilirubinemia #Polysubstance abuse (ethanol, cocaine, tobacco) -Patient drinks a proximally two pt of hodan and three beers a day, her last alcoholic beverage was on 03/10/2025. -Ativan p.r.n. for withdrawal syndrome (CIWA score 0) -Counseled patient for over 16 minutes on cessation #Hypophosphatemia -Replenish #hypokalemia -Repleted #Multiple ectopic pregnancies and abortions -STI panel- negative #Asthma, no exacerbation -Albuterol p.r.n. diet- full liquid diet post surgery dvt prophylaxis- Lovenox 40 mg subcutaneous GI prophylaxis- Protonix 40 mg IV daily Goals of care discussed with patient for over 21 minutes: Full code status Discussed plan with Dr. Byrd Plan discussed with: Patient My Orders My Orders Orders - VINOD SINGER Procedure Category Date Status Time Potassium Chloride PHA 03/16/25 In Process (Potassium Chloride). 08:30 Date of Service: Mar 16, 2025 Billing Provider: JAYSON BYRD MD Common Visit Codes: [id number] INP/OBS CARE(HIGH) VINOD SINGER Mar 16, 2025 12:29 JAYSON BYRD MD Mar 19, 2025 00:01
[2025-03-16] MEDS: LIDOCAINE W/ EPINEPHRINE 1% 20ML VIAL ONE (12:32)
[2025-03-16] MEDS: ceFAZolin 2 GM/D5W50ml 50 ML IV ONE (12:32)
[2025-03-16] MEDS: DOXAPRAM HCL 20 MG/ML 20ML VIAL INJ IV ONE (12:36)
[2025-03-16] MEDS: PIPERACILLIN-TAZOB 3.375GM 100 ML IV SCH (14:10)
[2025-03-16] MEDS: SODIUM CHLORIDE 0.9% 1,000 ML IV SCH (14:12)
[2025-03-16] MEDS: POTASSIUM PHOSPHATE 22 MEQ in SODIUM CHL 0.9% 100 ML IV ONE (15:03)
[2025-03-16] MEDS: ACETAMINOPHEN 325 MG TAB PO SCH (17:06)
[2025-03-16] MEDS: MORPHINE SULFATE 4 MG/ML SYR/VIAL IV PRN (23:29)
[2025-03-17] VITALS (8 sets, daily range): BP systolic 105–137; BP diastolic 69–96; PULSE 68–78; RESP 15–18; TEMP 98–98.9; O2SAT 94–98
[2025-03-17] MEDS: KETOROLAC TROMETH 30 MG/ML 1ML VIAL IV ONE (08:45)
[2025-03-17 09:22] LABS: Hematocrit 36.9 % (36.0-46.0); Hemoglobin 12.3 g/dL (12.2-16.2); Mean Corpuscular Hemoglobin 32.5 pg (28.0-32.0); Mean Corpuscular Volume 97.0 fL (80.0-100.0); Nucleated Red Blood Cells % 0.1 %
[2025-03-17 09:41] LABS: Chloride 105 mmol/L (98-107); Sodium 139 mmol/L (136-145)
[2025-03-17 09:42] LABS: Anion Gap 10 (5-15); Carbon Dioxide 24 mmol/L (20-31)
[2025-03-17 09:43] LABS: Calcium 8.4 mg/dL (8.7-10.4); Potassium 3.3 mmol/L (3.5-5.1)
[2025-03-17 09:47] LABS: Glucose 80 mg/dL (74-106)
[2025-03-17 09:51] LABS: BUN/Creatinine Ratio 9.1 (10.0-20.0); Blood Urea Nitrogen < 5 mg/dL (9-23)
--- NOTE | 2025-03-17 10:03 | DVHPN2 ---
Progress Note - Dictate Date Seen: Mar 17, 2025 Medical Necessity Reason Pt with a Central, PICC or Fol: No Subjective E: no major events o/n. feels better. krishna liquid diet. vital signs Vital Sign Date Time Temp Pulse Resp B/P (MAP) Pulse Ox O2 Delivery O2 Flow Rate FiO2 03/17/25 09:00 98.6 78 18 114/78 (90) 94 98.6 03/16/25 20:00 Room Air* 0 21 Total Intake and Output 03/16/25 03/16/25 03/17/25 15:00 23:00 07:00 Intake Total 10 ml 586 ml 828 ml Output Total 75 ml Balance -65 ml 586 ml 828 ml medications Current Medications Medications Dose Ordered Sig/Pelon Route Start Time Stop Time Status Last Admin Dose Admin Ondansetron HCl 4 mg Q4HP PRN IV 03/16/25 00:15 03/16/25 04:58 4 MG Piperacillin Sod/ Tazobactam Sod 100 ml @ 25 mls/hr Q8HR IV 03/16/25 14:00 03/17/25 05:39 25 MLS/HR Pantoprazole Sodium 40 mg DAILY IV 03/16/25 10:00 03/17/25 08:13 40 MG Lorazepam 0.5 mg Q6HP PRN IV 03/16/25 03:15 Sodium Chloride 1,000 ml @ 75 mls/hr [id number] IV 03/16/25 12:00 03/16/25 14:12 75 MLS/HR Acetaminophen 650 mg Q8HR PO 03/16/25 16:00 03/17/25 05:38 650 MG Morphine Sulfate 2 mg Q4HPRN PRN IV 03/16/25 16:00 03/17/25 04:38 2 MG objective GEN: NAD ABD: surgical dressings clean and dry. laboratory and microbiology Laboratory Tests 03/17/25 07:58 Test 03/17/25 07:58 Range/Units Serum Glucose 80 74-106 mg/dL Assessment/Plan A: 1. s/p lap appendectomy POD #1 doing well. P: 1. stable from surgery POV for DC with oral abx (augmentin x 3 more days) 2. remove bandages tomorrow. ok to get incisions wet tomorrow. 3. f/u in clinic next Mon. call [phone] for f/u appt Plan discussed with: Patient MARIA LUISA MONTESINOS MD Mar 17, 2025 10:03
[2025-03-17] MEDS: POTASSIUM EFFERVESENT TAB 25 MEQ PO ONE (11:52)
[2025-03-17] MEDS: AMOXICILLIN/CLAVUL 875 MG TAB PO ONE (11:52)
--- NOTE | 2025-03-17 13:51 | DVHPNRES ---
Progress Note Date Seen: Mar 17, 2025 Resident Creating Document: VINOD SINGER RESIDENT Medical Necessity Reason Pt with a Central, PICC or Fol: No Subjective Review of Systems Alex Frye is a 29year old female patient who presents to the ED with chief complaint of constant pressure-like abdominal pain which 1st started and umbilical area and then radiated towards right lower quadrant, pain started on Sunday on 03/14/2025 at noon with intensity 10/10, associated with nausea, vomiting with food containing than yellowish and clear emesis and constipation. Pain did not improve with Pepto-Bismol and was partially relieved by heating pads. Patient was not able to since onset of symptoms, prompting her visit today. Denies fever, chills, sick contact, recent travel and other associated symptom. 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 Surgical history: Ectopic surgery, left foot surgery Family history: Grandmother has heart disease Social history: Lives in [place] with roommates (next of kin is mother). Occasionally smokes (less than five pack-year history of smoking). Occasional cocaine abuse. Ethanol abuse (drinks two pt of hodan and three beers a day) last alcoholic beverage was on Sunday03/10/2025 Allergies: none Home medication: Albuterol Full code ROS: 03/16/25: patient was seen and examined by me at the bedside. Patient had abdominal pain which had increased to 8/ 10 in intensity in the morning. Surgery consultation was done and patient underwent laparoscopic appendectomy today. Patient will be on a full liquid diet added 03/17/25: Patient still complains of abdominal pain which is 8/10 in intensity. Ketorolac injection 15 mg IV once was given to her. Patient also on morphine sulfate injection 2 mg Q 4 IV PRN. Surgery on board, suggested- 'stable from surgery POV for DC with oral abx (augmentin x 3 more days); remove bandages tomorrow.' Zosyn was stopped today and Augmentin 875 mg b.i.d. was started. Potassium was repleted. Possible D/C tomorrow after bandages removed. Objective vital signs Vital Sign Date Time Temp Pulse Resp B/P (MAP) Pulse Ox O2 Delivery O2 Flow Rate FiO2 03/17/25 12:37 98.0 70 16 105/75 (85) 94 98.0 03/17/25 08:00 Room Air* 0 21 Total Intake and Output 03/16/25 03/16/25 03/17/25 15:00 23:00 07:00 Intake Total 10 ml 586 ml 828 ml Output Total 75 ml Balance -65 ml 586 ml 828 ml medications Current Medications Medications Dose Ordered Sig/Pelon Route Start Time Stop Time Status Last Admin Dose Admin Ondansetron HCl 4 mg Q4HP PRN IV 03/16/25 00:15 03/16/25 04:58 4 MG Pantoprazole Sodium 40 mg DAILY IV 03/16/25 10:00 03/17/25 08:13 40 MG Lorazepam 0.5 mg Q6HP PRN IV 03/16/25 03:15 Acetaminophen 650 mg Q8HR PO 03/16/25 16:00 03/17/25 05:38 650 MG Morphine Sulfate 2 mg Q4HPRN PRN IV 03/16/25 16:00 03/17/25 04:38 2 MG Amoxicillin/ Clavulanate Potassium 875 mg Q12HR PO 03/17/25 22:00 Examination Pt is lying on bed General Appearance: Alert, Oriented X3, Cooperative, Not in acute distress HEENT: Atraumatic, Mucous membranes moist/pink Respiratory: Clear to auscultation, Normal air movement, No added sounds Cardiovascular: Regular rate, Normal S1, Normal S2, No murmurs Abdominal: Soft, no organomegaly, normal bowel sounds, abdominal binder placed, no soakage Extremities: No edema, Normal pulses, No tenderness/swelling Skin: No Significant rash, except past surgical scars Neuro: Normal speech, sensorimotor deficits none Psych/Mental Status: Mental status NL, Mood NL laboratory and microbiology Laboratory Tests 03/17/25 07:58 Test 03/17/25 07:58 Range/Units Serum Glucose 80 74-106 mg/dL Labs and/or images reviewed: Labs reviewed by me, Image(s) reviewed by me Problem List/Assessment/Plan Problem List/Assessment/Plan #Sepsis secondary to appendicitis #S/P day1 laparoscopic appendectomy for Acute appendicitis -Abdomen and pelvis CT showed acute appendicitis. -Currently under empiric IV antibiotic (Zosyn) -Indicate bowel rest (NPO) -On IV fluids -IV Zofran 4 mg q.4 PRN -Consulted surgery, suggested Laparoscopic appendectomy possible open surgery, Pt underwent -surg on board, suggested today: stable from surgery POV for DC with oral abx (augmentin x 3 more days); remove bandages tomorrow. laproscopic appendectomy -Protonix 40 mg daily -acetaminophen 625 mg per orally 8 hourly #Ethanol abuse #Hyperbilirubinemia #Polysubstance abuse (ethanol, cocaine, tobacco) -Patient drinks a proximally two pt of hodan and three beers a day, her last alcoholic beverage was on 03/10/2025. -Ativan p.r.n. for withdrawal syndrome (CIWA score 0) -Counseled patient for over 16 minutes on cessation #Hypophosphatemia -Replenish #hypokalemia -Repleted #Multiple ectopic pregnancies and abortions -STI panel- negative #Asthma, no exacerbation -Albuterol p.r.n. diet- full liquid diet post surgery dvt prophylaxis- Lovenox 40 mg subcutaneous GI prophylaxis- Protonix 40 mg IV daily Goals of care discussed with patient for over 21 minutes: Full code status Discussed plan with Dr. Byrd Plan discussed with: Patient My Orders My Orders Orders - VINOD SINGER Procedure Category Date Status Time Communication Order ORDERS 03/17/25 Transmitted 11:25 Date of Service: Mar 17, 2025 Billing Provider: JAYSON BYRD MD Common Visit Codes: [id number] INP/OBS CARE(HIGH) VINOD SINGER Mar 17, 2025 13:51 JAYSON BYRD MD Mar 19, 2025 00:14
[2025-03-17] MEDS: AMOXICILLIN/CLAVUL 875 MG TAB PO SCH (21:48)
[2025-03-18 01:00] VITALS: BP 104/79; PULSE 83; RESP 18; TEMP 98.4; O2SAT 96
[2025-03-18 05:00] VITALS: BP 125/91; PULSE 72; RESP 18; TEMP 98.4; O2SAT 98
[2025-03-18 07:05] LABS: Hematocrit 37.3 % (36.0-46.0); Hemoglobin 12.8 g/dL (12.2-16.2); Mean Corpuscular Hemoglobin 32.9 pg (28.0-32.0); Mean Corpuscular Volume 95.8 fL (80.0-100.0); Nucleated Red Blood Cells % 0.2 %
[2025-03-18 07:21] LABS: Anion Gap 10 (5-15); Carbon Dioxide 27 mmol/L (20-31); Chloride 102 mmol/L (98-107); Potassium 3.7 mmol/L (3.5-5.1); Sodium 139 mmol/L (136-145)
[2025-03-18 07:22] LABS: Calcium 9.0 mg/dL (8.7-10.4)
[2025-03-18 07:27] LABS: Glucose 97 mg/dL (74-106)
[2025-03-18 07:30] LABS: BUN/Creatinine Ratio 8.2 (10.0-20.0); Blood Urea Nitrogen < 5 mg/dL (9-23)
[2025-03-18 08:00] VITALS: RESP 18; O2SAT 96
[2025-03-18 09:00] VITALS: BP 108/72; PULSE 60; RESP 18; TEMP 97.9; O2SAT 95
--- NOTE | 2025-03-18 10:53 | DVHDSRES ---
Discharge Summary Date of Admission Resident Creating Document: VINOD SINGER RESIDENT Mar 16, 2025 at 03:22 Date of Discharge: Mar 18, 2025 Admitting Diagnosis Sepsis secondary to appendicitis Labs/Diagnostic Data: Laboratory Results Test 03/18/25 05:01 03/16/25 04:17 03/16/25 01:50 03/16/25 00:31 White Blood Count 4.7 10^3/uL (4.4-10.8) Red Blood Count 3.90 10^6/uL (4.0-5.20) Hemoglobin 12.8 g/dL (12.2-16.2) Hematocrit 37.3 % (36.0-46.0) Mean Corpuscular Volume 95.8 fL (80.0-100.0) Mean Corpuscular Hemoglobin 32.9 pg (28.0-32.0) Mean Corpuscular Hemoglobin Concent 34.3 g/dL (32.0-36.0) Red Cell Distribution Width 15.8 % (11.8-14.3) Platelet Count 231 10^3/uL (140-450) Mean Platelet Volume 7.8 fL (6.9-10.8) Neutrophils (%) (Auto) 51.6 % (37.0-80.0) Lymphocytes (%) (Auto) 37.2 % (10.0-50.0) Monocytes (%) (Auto) 10.3 % (0.0-12.0) Eosinophils (%) (Auto) 0.6 % (0.0-7.0) Basophils (%) (Auto) 0.3 % (0.0-2.0) Neutrophils # (Auto) 2.4 10 ^3/uL (1.6-8.6) Lymphocytes # (Auto) 1.7 10 ^3/uL (0.4-5.4) Monocytes # (Auto) 0.5 10 ^3/uL (0-1.3) Eosinophils # (Auto) 0 10 ^3/uL (0-0.8) Basophils # (Auto) 0 10 ^3/uL (0-0.2) Nucleated Red Blood Cells 0.2 % Sodium Level 139 mmol/L (136-145) Potassium Level 3.7 mmol/L (3.5-5.1) Chloride Level 102 mmol/L (98-107) Carbon Dioxide Level 27 mmol/L (20-31) Anion Gap 10 (5-15) Blood Urea Nitrogen < 5 mg/dL (9-23) Creatinine 0.61 mg/dL (0.550-1.02) Glomerular Filtration Rate Calc 123 mL/min (>90) BUN/Creatinine Ratio 8.2 (10.0-20.0) Serum Glucose 97 mg/dL (74-106) Calcium Level 9.0 mg/dL (8.7-10.4) Total Bilirubin 1.1 mg/dL (0.2-1.0) Aspartate Amino Transferase (AST) 15 U/L (13-40) Alanine Aminotransferase (ALT) 18 U/L (7-40) Alkaline Phosphatase 68 U/L (46-116) Total Protein 7.7 g/dL (5.7-8.2) Albumin 4.5 g/dL (3.2-4.8) Plasma/Serum Blood Alcohol < 3.0 mg/dL (<10) Treponema pallidum Antibody Non-reactive (Negative) Hepatitis A IgM Antibody Negative Hepatitis B Surface Antigen Negative (Negative) Hepatitis B Core IgM Antibody Negative (Negative) Hepatitis C Antibody Negative (Negative) HIV (1&2) Antibody Negative (Negative) Urine Color Light-yellow (Yellow) Urine Clarity Clear (Clear) Urine pH 7.0 (5.0-9.0) Urine Specific Cecilia > 1.050 (1.001-1.035) Urine Protein Trace (Negative) Urine Ketones 1+ (Negative) Urine Blood Negative /uL (Negative) Urine Nitrite Negative (Negative) Urine Bilirubin Negative (Negative) Urine Urobilinogen Normal mg/dL (Negative) Urine Leukocyte Esterase Negative /uL (Negative) Urine RBC None seen /hpf (0 - 4) Urine Microscopic WBC 1 /HPF (0-5) Urine Squamous Epithelial Cells Few /hpf (<5) Urine Bacteria None seen /hpf (None Seen) Urine Glucose Normal mg/dL (Normal) Urine Test Negative (Negative) Urine Opiates Screen Neg (NEGATIVE) Urine Fentanyl Screen Neg (NEGATIVE) Urine Barbiturates Screen Neg (NEGATIVE) Urine Phencyclidine Screen Neg (NEGATIVE) Urine Amphetamines Screen Neg (NEGATIVE) Urine Benzodiazepines Screen Neg (NEGATIVE) Urine Cocaine Screen Neg (NEGATIVE) Urine Cannabinoids Screen Neg (NEGATIVE) Lactic Acid Level 1.1 mmol/L (0.4-2.0) Phosphorus Level 2.3 mg/dL (2.4-5.1) Magnesium Level 1.7 mg/dL (1.6-2.6) Triglycerides Level 63 mg/dL (< 150) Cholesterol Level 136 mg/dL (< 200) LDL Cholesterol 52 mg/dL (< 100) HDL Cholesterol 73 mg/dL (40-59) Test 03/15/25 22:15 Prothrombin Time 11.3 sec (9.3-11.8) Prothrombin Time INR 1.07 (0.9-1.15) Activated Partial Thromboplast Time 29.0 SEC (24.5-34.5) Hemoglobin A1c 4.9 % A1C (<5.7) Lipase 34 U/L (12-53) Vitamin B12 Level 227 pg/mL (211-911) Vitamin D 25-Hydroxy 9.6 ng/mL (30.0-100) Thyroid Stimulating Hormone (TSH) 1.19 uIU/mL (0.55-4.78) Beta HCG, Quantitative 0.2 mIU/mL (1.5-4.2) Other Laboratory Tests 03/18/25 05:01 Brief Hx & Hospital Course: Alex Frye is a 29year old female patient who presents to the ED with chief complaint of constant pressure-like abdominal pain which 1st started and umbilical area and then radiated towards right lower quadrant, pain started on Sunday on 03/14/2025 at noon with intensity 10/10, associated with nausea, vomiting with food containing than yellowish and clear emesis and constipation. Pain did not improve with Pepto-Bismol and was partially relieved by heating pads. Patient was not able to since onset of symptoms, prompting her visit today. Denies fever, chills, sick contact, recent travel and other associated symptom. 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 Surgical history: Ectopic surgery, left foot surgery Family history: Grandmother has heart disease Social history: Lives in [place] with roommates (next of kin is mother). Occasionally smokes (less than five pack-year history of smoking). Occasional cocaine abuse. Ethanol abuse (drinks two pt of hodan and three beers a day) last alcoholic beverage was on Sunday03/10/2025 Allergies: none Home medication: Albuterol Full code Brief history of hospitalization: Patient came to the emergency department with periumbilical abdominal pain which was radiating to the right lower quadrant. She was septic on presentation. We did a CT abdomen and pelvis which showed acute appendicitis and began IV fluids and IV antibiotics Zosyn. For nausea we gave IV Zofran, Protonix and we consulted surgery. Patient underwent laparoscopic appendectomy. Patient also has a history of alcohol abuse and drinks around 2 pt of hodan and 3 beers a day. Patient was counseled regarding cessation. During her stay labs showed hypophosphatemia and hypokalemia and electrolytes were repleted. STI panel was ordered for multiple ectopic pregnancies and abortions which came back negative. For her history of asthma we continued her albuterol PRN. Lovenox 40 mg subcutaneous was given as DVT prophylaxis throughout her hospitalization. Post appendectomy we started the patient on liquid diet, increased it to pureed diet which she was able to tolerate. Abdominal bandage was removed today and Patient is now stable and can be discharged with augmentin for 2 more days. Patient has communicated understanding and agreed to the discharge plan. Patient is to return to surgery clinic on Sunday for follow up. Pt is lying on bed General Appearance: Alert, Oriented X3, Cooperative, Not in acute distress HEENT: Atraumatic, Mucous membranes moist/pink Respiratory: Clear to auscultation, Normal air movement, No added sounds Cardiovascular: Regular rate, Normal S1, Normal S2, No murmurs Abdominal: Soft, no organomegaly, normal bowel sounds Extremities: No edema, Normal pulses, No tenderness/swelling Skin: No Significant rash, except past surgical scars Neuro: Normal speech, sensorimotor deficits none Psych/Mental Status: Mental status NL, Mood NL Nurse was there as shift leader during examination Operations or Procedures PROCEDURE(s): ABPLIV - CT AB PEL WITH IV CON ONLY CLINICAL HISTORY: RLQ pain IMPRESSION: Acute appendicitis. No free air or abscess. Date: 03/16/25 Preop Diagnosis: 1. Acute appendicitis Postop Diagnosis: 1. Same Surgeon: Filipe Farias MD Pig Breeder: None Anesthesiologist: Dr. Corral Anesthesia: General, Local Consent: The surgery and its risks including but not limited to infection, bleeding requiring possible blood transfusion with the risk of hepatitis or HIV infection, possible open surgery, possibility that the abdominal pain is caused by different intra-abdominal pathology other than acute appendicitis in which case we will proceed with the appendectomy if it is safe to do so and then treat the problem according to intraoperative findings were explained to the patient. All questions were answered to her satisfaction. She expressed verbal understanding and wished to proceed with the surgery. Complications: None Estimated Blood Loss: 20 mL Fluids: 600 mL Name of Procedure Performed Laparoscopic appendectomy Procedure Details Procedure Details: After induction of general anesthesia, Frost catheter was placed by the OR nursing staff and her abdomen was then prepped and draped in standard surgical fashion. A small infraumbilical incision was made and this incision was taken through the abdominal wall down to the fascia. There was appeared to be a small umbilical hernia with small amount of incarcerated fatty tissue which was amputated at the level of the fascial defect. The fascial defect was then lengthened big enough to fit a Matilde trocar. Interrupted 0 Vicryl sutures were placed through the fascial incision and using an open technique, Matilde trocar was introduced and secured using the Vicryl sutures. Abdomen was then insufflated to 15 mmHg and camera was inserted. Visual examination of the intestine under the fascial incision appeared normal without injury. Under direct visualization, a 5 mm bladeless trocar was placed in the left lower quadrant and a 2nd 5 mm bladeless trocar was placed in the suprapubic region both under direct visualization. Examination of the right lower quadrant revealed inflamed and dilated appendix without perforation. Mesoappendix was then divided up to the base of the appendix using an endovascular stapler. Base of the appendix was then stapled and divided using a regular endo stapler. The appendix was then removed from the abdominal cavity using an endo pouch bag and sent off the surgical field. Abdomen was then re-insufflated. The staple line was visualized and appeared intact without bleeding or leaks. There was cloudy fluid down in the pelvis which was aspirated away and the pelvic area was then well irrigated until fluid was clear. Trocars were then removed under direct visualization as the abdomen was deflated. Additional interrupted 0 Vicryl sutures were placed through the infraumbilical fascial incision and the sutures were tied down closing off the infraumbilical fascia. Surgical sites were irrigated injected with 20 mL of 0.25% Marcaine with epinephrine. Skin incisions were closed using minor. Surgical sites were cleaned and dried and dressings were applied. Sponge, needle, instrument count at the end of the case were reported to be correct by the nursing staff. The patient tolerated procedure well and was awake, extubated and at the time of dictation she is being transferred back to recovery in stable condition. Condition at Discharge: Stable Final Diagnosis/Problems List #Sepsis secondary to appendicitis #Acute appendicitis #Ethanol abuse #Hyperbilirubinemia #Polysubstance abuse (ethanol, cocaine, tobacco) #Hypophosphatemia #hypokalemia #Multiple ectopic pregnancies and abortions #Asthma, no exacerbation Discharge Disposition: Home Discharge Instruct/Medications Diet: Consistent carbohydrate, Cardiac 2g Na,low cholest Activity: No Restrictions, As Tolerated Follow Up/Referral: Follow up with PCP within 10 days Follow up at discharge clinic within 2 weeks f/u in surgery clinic at [facility] next Mon. Call [phone] for f/u appt Medications: Continue Augmentin 875 mg twice a day today and tomorrow All home medications Scheduled Amoxicillin & Pot Clavulanate (Augmentin Tablet), 875 MG PO BID Scheduled PRN Ibuprofen Micronized (Ibuprofen), 600 MG PO Q8HP PRN Discharge Statement: "Patient was advised to return to the ER or call 911 if any headaches, dizziness, shortness of breath, chest pain, abdominal pain, bleeding, fevers, or worsening of medical condition. Patient was counseled about treatment plan, medications, possible side effects, patientverbalized understanding. All questions were answered to the best of my ability. This discharge took greater then 30 minutes in planning, reviewing documentation, counseling the patient, and discussing with other team members." ASSESSMENT ASSESSMENT Assessment Sepsis secondary to appendicitis Date of Service: Mar 18, 2025 Billing Provider: JAYSON BYRD MD Common Visit Codes: 47475-MVL/OBS DISCH DAY >30min VINOD SINGER RESIDENT Mar 18, 2025 10:53 JAYSON BYRD MD Mar 18, 2025 22:09
[2025-03-18 11:18] VITALS: TEMP 36.6
[2025-03-18] MEDS ORDERED: AUG875T PO (11:27)
[2025-03-18] MEDS ORDERED: IBUP1TAB5 PO (11:27)
[2025-03-18 13:00] VITALS: BP 96/69; PULSE 61; RESP 18; TEMP 97.7; O2SAT 97
[2025-03-19 05:08] LABS: Chlamydia Trachomatis, NAA Negative (Negative); Neisseria gonorrhoeae, NAA Negative (Negative)
== END 2025-03-18 16:50 | disposition home or self-care (01) | DRG 710 ==
LOC: ER 21:28 → OVERFLOW 03-16 03:22 → CENTRAL 03-16 15:46
PROVIDERS: ADMIT Student in an Organized Health Care Education/Training Program; ATTEND Student in an Organized Health Care Education/Training Program
PROC: 0DTJ4ZZ Resection of Appendix, Percutaneous Endoscopic Approach (ICD-10-PCS; principal; 2025-03-16 10:59)
DX: A41.9 Sepsis, unspecified organism (principal); E83.39 Other disorders of phosphorus metabolism; R71.0 Precipitous drop in hematocrit; K35.80 Unspecified acute appendicitis; J45.909 Unspecified asthma, uncomplicated; E87.6 Hypokalemia; E80.6 Other disorders of bilirubin metabolism; F19.10 Other psychoactive substance abuse, uncomplicated; F10.10 Alcohol abuse, uncomplicated; Z88.0 Allergy status to penicillin; Z79.899 Other long term (current) drug therapy; Y90.0 Blood alcohol level of less than 20 mg/100 ml
CPT/HCPCS: 36415; 74177; 80048; 80053; 80061; 80074; 80307; 80320; 81001; 81025; 82306; 82607; 83036; 83605; 83690; 83735; 84100; 84443; 84702; 85025; 85610; 85730; 86703; 86780; 96360; 99291; G0378; J1885; J2003; J2250; J2405; J2470; J2543; J2704